=== PATIENT | female | born 1955 | race Caucasian/White ===

== ENCOUNTER 2024-01-30 11:26 | Emergency (ER) | payer OTHER, SELFPAY ==
--- NOTE | 2024-01-30 11:29 | XRR_ITS ---
PROCEDURE INFORMATION: Exam: XR Left Wrist Exam date and time: 01/30/2024 12:36 PM Age: 68 years old Clinical indication: Injury or trauma; Fall; Blunt trauma (contusions or hematomas); Wrist; Left TECHNIQUE: Imaging protocol: Radiologic exam of the left wrist. Views: 3 or more views. COMPARISON: No relevant prior studies available. FINDINGS: Bones/joints: Comminuted, impacted fracture of distal radius. Distal component is displaced proximally and volar aspect by at least 1.5 cm from distal end of radius. Small osseous density seen displaced lateral to ulnar sided processes felt to be acute fractured styloid process. Prominent arthritic changes of 1st carpometacarpal articulation noted. Bone mineralization is normal. Soft tissues: Soft tissue swelling. No soft tissue air or radiopaque foreign body. XR/XR wrist LT min 3V* [id number] IMPRESSION: Acute proximally displaced comminuted impacted fracture of distal radius. Fracture ulnar styloid process.
[2024-01-30 12:06] VITALS: BP 202/74; PULSE 66; RESP 18; TEMP 36.6; O2SAT 100; BMI 20.5
--- NOTE | 2024-01-30 12:14 | ED_ITS ---
HPI - Extremity Problem General: Chief complaint: Extremity Injury, Upper Stated complaint: Left Wrist Injury Time Seen by Provider: 01/30/24 12:09 History of Present Illness: Patient was working on her garden when she fell and tried to catch herself with her left arm. Patient felt instantaneous pain in her left distal forearm patient has obvious deformity right by her wrist. Patient states she did not have pain or deformity for the fall. Any movement makes it hurt worse. Patient did not hit her head, lose consciousness, or pass out. Review of Systems General: Reports: 10 or more systems reviewed and unremarkable except in HPI and below Physical Exam Const: COMMON NORMALS: no acute distress, average body habitus, patient oriented x3, no limitations, healthy appearing, alert and well nourished HENMT: COMMON NORMALS: normocephalic, atraumatic, hearing grossly normal bilaterally, external ears normal, EAC's normal, Normal external nose present, moist oral mucous membranes and oropharynx normal HEAD & SCALP: normocephalic and atraumatic NOSE: Normal external nose present EXTERNAL EAR: Yes external ears normal EXTERNAL AUDITORY CANAL: EAC's normal Neck/C-Spine: COMMON NORMALS: no JVD Chest: COMMONS NORMALS: normal inspection of the chest and normal palpation of entire chest wall Resp: COMMON NORMALS: normal respiratory effort, No retractions, No use of accessory muscles and clear to auscultation bilaterally AUSCULTATION: clear to auscultation bilaterally Cardio: COMMON NORMALS: no JVD, regular rate, regular rhythm, S1 normal heart sound present, S2 normal heart sound present, No gallops present (Cardio), No clicks present (Cardio), No murmurs present (Cardio) and No rub (Cardio) RATE: regular rate RHYTHM: regular rhythm HEART SOUNDS: S1 normal heart sound present and S2 normal heart sound present GI: COMMON NORMALS: Normal to inspection, nondistended, normoactive bowel sounds present, Soft to palpation, non-tender and No hepatosplenomegaly present PALPATION: Yes Soft to palpation and Yes No hepatosplenomegaly present Extremity: NARRATIVE EXTREMITY EXAM: Obvious deformity to the left wrist Neuro: COMMON NORMALS: patient oriented x3 SENSORIUM/ORIENTATION: Yes alert Procedures Orthopedic Fracture Reduction Fracture #1: Time Out Performed: Yes Side: left Fracture Reduction Location: radius Analgesia: procedural sedation and hematoma block Technique: direct manipulation Post Reduction X-rays Demonstrate: acceptable reduction Post-reduction neuro exam: intact Post-reduction vascular exam: intact Splint Applied: Yes Patient Tolerated Procedure: well and no complications Procedural Sedation Presedation Evaluation: Left distal radial fracture ASA Class: II Time of Last PO Intake: 06:00 Preparation: environmental monitoring specialist applied, pulse oximeter, supplemental O2 applied, suction/airway equipment at bedside and IV secured Ketamine dose (mg): 50 Patient Tolerated Procedure: well and no complications Complications: none Course Vital Signs: Vital signs: Vital Signs Temperature 97.9 F 01/30/24 12:06 Pulse Rate 69 01/30/24 13:08 Respiratory Rate 17 01/30/24 12:44 Blood Pressure 202/74 01/30/24 12:06 Pulse Oximetry 96 01/30/24 13:08 Oxygen Delivery Me thod Room Air 01/30/24 12:06 MDM - Extremity (Nontraumatic) Medical Decision Making X-rays obtained which showed acute proximal displaced comminuted impacted fracture of the distal radius, hematoma block was attempted with 10 cc of lidocaine directly into the fracture line itself. This provided an adequate anesthesia for reduction. Patient was then given a total of 60 mg IV ketamine and reduction was completed. Patient was placed in a splint and a sling postreduction films was obtained. Patient be given a prescription for Campbell and was referred to orthopedics through case management patient be discharged home Differential Diagnosis Unlikely herpes zoster, gout, cellulitis, superficial thrombophlebitis, deep venous thrombosis of upper extremity, lower extremity edema or deep vein thrombosis of lower extremity Medical Records I reviewed the patient's medical records. Lab Data I reviewed the patient's lab results. Radiology Impressions Forearm X-Ray 01/30/24 12:14 IMPRESSION: Acute proximally displaced comminuted fracture distal radius as seen on the wrist radiograph. Ulnar styloid process fracture. No proximal fracture identified. All radiology interpretation(s) finalized by discharge Discharge Plan Discharge Patient Disposition: Home Clinical Impression: Fracture of wrist Qualifiers: Encounter type: initial encounter Fracture type: closed Laterality: left Qualified Code(s): S62.102A - Fracture of unspecified carpal bone, left wrist, initial encounter for closed fracture Condition: Stable Prescriptions: New hydrocodone-acetaminophen 5-325 mg tablet 1 tab PO Q6H PRN (Reason: pain) Qty: 14 0RF No Action multivitamin Tablet 1 tab PO QAM Aspir-81 81 mg Tablet,Delayed Release (Dr/Ec) 81 mg PO QAM Multiminerals Tablet 1 tab PO QAM CoQ-10 100 mg Capsule 100 mg PO QAM NAC 600 mg Capsule 600 mg PO QAM Fish Oil 1,600-500-800 mg/5 mL Liquid 5 ml PO QAM magnesium oxide 400 mg magnesium Tablet 400 mg PO QAM Discharge Orders: Discharge ED (Routine); Ordered 01/30/24 Ordered By: Wes Tran Referrals: Bria Vigil FNP [Primary Care Provider] - 1 week Patient Instructions: Wrist Fracture in Adults (ED), Opioid Safety, Pain Manage ment Activity Restrictions/Additional Instructions: The x-ray showed a left wrist fracture. The fracture was displaced and this was reduced. You are placed in a splint and a sling. Please keep these on at all times until seen by orthopedics. Case management will be calling you probably on Wednesday to schedule your appointment with orthopedic surgery. A prescription of pain medicine was sent to your pharmacy. Please take all medicine as prescribed. Coding Level of Care Code ED Lead Military Analyst for Errol Santoro
--- NOTE | 2024-01-30 12:14 | XRR_ITS ---
PROCEDURE INFORMATION: Exam: XR Left Forearm Exam date and time: 01/30/2024 12:37 PM Age: 68 years old Clinical indication: Injury or trauma; Fall; Blunt trauma (contusions or hematomas); Arm, lower; Left; Additional info: Fall deformity TECHNIQUE: Imaging protocol: Radiologic exam of the left forearm. Views: 2 views. COMPARISON: CR (UP EXM, ) 01/30/2024 12:36 PM FINDINGS: Bones/joints: Acute, proximally displaced comminuted fracture of distal radius as seen on the wrist radiograph. radiograph. Fracture ulnar styloid process also suspected. No proximal fracture. Bone mineralization is normal. Soft tissues: Normal. XR/XR forearm LT 2V [id number] IMPRESSION: Acute proximally displaced comminuted fracture distal radius as seen on the wrist radiograph. Ulnar styloid process fracture. No proximal fracture identified.
[2024-01-30 12:38] VITALS: PULSE 68; O2SAT 96
[2024-01-30 12:44] VITALS: RESP 17; O2SAT 100
[2024-01-30] MEDS: fentaNYL 50 mcg/mL INJ 2mL IVP (12:44)
[2024-01-30] MEDS: sodium chloride 0.9% 1,000 ML 999 ML IV (12:44)
[2024-01-30 13:08] VITALS: PULSE 69; O2SAT 96
--- NOTE | 2024-01-30 14:10 | XRR_ITS ---
PROCEDURE INFORMATION: Exam: XR Left Wrist Exam date and time: 01/30/2024 2:16 PM Age: 68 years old Clinical indication: Injury or trauma; Fall; Other: Post reduction TECHNIQUE: Imaging protocol: Radiologic exam of the left wrist. Views: 3 or more views. COMPARISON: CR (UP EXM, ) 01/30/2024 12:36 PM FINDINGS: Bones/joints: Comminuted fracture of distal radius with displaced distal component proximally in volar aspect is not significantly changed. Ulnar styloid process fracture again noted. Soft tissues: Interval placement of overlying cast. XR/XR wrist LT min 3V* [id number] IMPRESSION: Comminuted displaced and impacted fracture of distal radius, no significant change. Ulnar styloid process fracture suspected.
[2024-01-30] MEDS: lidocaine 1% INJ 10 mL (per mL) INJECTION (14:26)
[2024-01-30] MEDS: ketamine 100 mg/mL Inj 5 mL 30 MG IVP ×2 (14:26)
[2024-01-30] MEDS: ondansetron 2 mg/ML SDV 2 mL 4 MG IVP (14:34)
--- NOTE | 2024-01-31 10:54 | DCPLANNER ---
A message was sent to ortho on 01/30 at [id number]. [facility] to contact patient
== END 2024-01-30 15:13 | disposition home or self-care (01) ==
PROVIDERS: Emergency Provider Emergency Medicine; PCP Nurse Practitioner
DX: S52.592A Other fractures of lower end of left radius, initial encounter for closed fracture (principal); S52.612A Displaced fracture of left ulna styloid process, initial encounter for closed fracture; Z79.82 Long term (current) use of aspirin; W19.XXXA Unspecified fall, initial encounter; Y93.H2 Activity, gardening and landscaping
CPT/HCPCS: 25605; 73090; 73110; 94799; 96361; 96374; 96375; 99285; J2405; J3010; J3490; J7030

== ENCOUNTER → 2024-02-01 07:53 | Outpatient (BNVA) | payer OTHER, SELFPAY | PROVIDERS: PCP Nurse Practitioner; Referring Provider Emergency Medicine; Visit Provider Physician Assistant | DX: S62.102A Fracture of unspecified carpal bone, left wrist, initial encounter for closed fracture (principal); W19.XXXA Unspecified fall, initial encounter | CPT/HCPCS: 73110 ==

== ENCOUNTER 2024-02-01 10:18 | Outpatient (CLI) | payer OTHER, SELFPAY | END 2024-02-01 10:19 | disposition home or self-care (01) | LOC: SPT 10:18 | PROVIDERS: PCP Nurse Practitioner; Visit Provider Student in an Organized Health Care Education/Training Program | DX: Z46.89 Encounter for fitting and adjustment of other specified devices (principal); S52.592D Other fractures of lower end of left radius, subsequent encounter for closed fracture with routine healing; X58.XXXD Exposure to other specified factors, subsequent encounter | CPT/HCPCS: 97760; 99204; L3908 ==

== ENCOUNTER 2024-02-03 07:21 | Day surgery (SDC) | payer OTHER, SELFPAY ==
[2024-02-03] VITALS (11 sets, daily range): BP systolic 150–182; BP diastolic 67–101; PULSE 71–85; RESP 14–22; TEMP 36.2–36.4; O2SAT 93–97; BMI 22.1
--- NOTE | 2024-02-03 07:10 | ECG_ITS ---
[facility] Test Date: 2024-02-03 Pat Name: Reyna White Department: Room: Gender: Female Field Secretary: : 1955 Requested By: Bassem Payne Order Number: [id number] Jl MD: Popeye Rossi M.D. Measurements Intervals [place] Rate: 73 P: 73 NH: 116 QRS: 42 QRSD: 101 T: 44 QT: 397 QTc: 440 Interpretive Statements SINUS RHYTHM WITH SHORT NH INTERVAL POSSIBLE LEFT ATRIAL ENLARGEMENT [-0.1mV P-WAVE IN V1/V2] INCOMPLETE RIGHT BUNDLE BRANCH BLOCK [90+ ms QRS DURATION, TERMINAL R IN V1/V2, 40+ ms S IN I/aVL/V4/V5/V6] MINIMAL ST DEPRESSION [0.025+ mV ST DEPRESSION] No previous ECG available for comparison Electronically Signed On 02-03-2024 14:50:58 SCANNING SUPERVISOR by Popeye Rossi M.D. [id number]
--- NOTE | 2024-02-03 08:02 | ANES.PREANE2 ---
Pre-Anesthetic Assessment Height/Weight: Height 1.63 m Weight 58.513 kg Temp Pulse Resp BP Pulse Ox O2 Del Method 97.5 F L 71 16 174/87 96 Room Air 02/03/24 07:39 02/03/24 07:39 02/03/24 07:39 02/03/24 07:39 02/03/24 07:39 02/03/24 07:41 Operation Date: 02/03/24 08:30 Proposed Procedures p ORIF Wrist ORIF Distal Radius(Left) - Berlin Rhonda, DO Was Beta Geovanny taken within 24 hours: N/A Was Clonidine taken within 24 hours: N/A Last intake: Intake Last Liquid Date 02/02/24 Last Liquid Time 20:00 Last Solid Date 02/02/24 Last Solid Time 16:00 Social No alcohol and No tobacco Exam alert, oriented x 3, clear to auscultation bilaterally and regular rate & rhythm Airway Submandibular: within normal limits Cervical ROM: within normal limits Mallampati: Class II Dentition: false Comments: Comments: Upper denture - at home History/ROS No significant history except as noted and No significant complaints Anesthetic Plan ASA status: 2 Anesthesia: General and Regional (specify below) Other: Supraclavicular block for post-op pain requested by surgeon Risk of > 500 ml blood loss (7ml/kg in children): No Medications/Allergies Home Medications Medication Instructions Recorded Confirmed Last Taken Type acetylcysteine 600 mg capsule (NAC) 600 mg PO QAM 01/30/24 02/02/24 02/02/24 History aspirin 81 mg tablet,delayed 81 mg PO QAM 01/30/24 02/02/24 02/02/24 History release coenzyme Q10 100 mg capsule 100 mg PO QAM 01/30/24 02/02/24 02/02/24 History (CoQ-10) hydrocodone 5 mg-acetaminophen 325 1 tab PO Q6H PRN pain #14 tabs 01/30/24 02/02/24 02/02/24 Rx mg tablet magnesium oxide 400 mg PO QAM 01/30/24 02/02/24 02/02/24 History minerals 1 tab PO QAM 01/30/24 02/02/24 02/02/24 History multivitamin 1 tab PO QAM 01/30/24 02/02/24 02/02/24 History omega 2-rce-shj-fish oil 1,600 5 ml PO QAM 01/30/24 02/02/24 02/02/24 History mg-500 mg-800 mg/5 mL oral liquid (Fish Oil) left wrist brace #1 ea 02/01/24 02/01/24 Unknown Rx ondansetron HCl 4 mg tablet 4 mg PO Q8H PRN nausea and 02/01/24 02/02/24 02/02/24 Rx vomiting #30 tabs Allergies Allergy/AdvReac Type Severity Reaction Status Date / Time erythromycin base Allergy ALGY-Hives Verified 02/01/24 08:11 PFS Anesthesia Social History (Updated 02/01/24 @ 08:13 by Carmen Chaudhari LPN) Smoking and tobacco/nicotine status: never used tobacco/nicotine Alcohol intake: current Alcohol intake frequency: few times a month Data Anesthesia Cardiac Studies: No Data to Display
[2024-02-03] MEDS: sodium chloride 0.9% 1,000 ML 30 ML IV (08:04)
[2024-02-03] MEDS: ondansetron 2 mg/ML SDV 2 mL 4 MG IVP (08:05)
[2024-02-03] MEDS: acetaminophen 1,000 MG/100 ML PIGGYBACK 400 MG IV (08:05)
[2024-02-03] MEDS: ketorolac 30 mg/mL INJ IVP (08:06)
[2024-02-03] MEDS: scopolamine 1.5 Patch 1 PATCH TRANSDERMA (08:06)
[2024-02-03] MEDS: midazolam 1 mg/mL INJ 5 ML 5 MG IVP (08:36)
--- NOTE | 2024-02-03 08:49 | W.PM.OPSUD ---
Surgery/Procedure H&P Update DATE OF PROCEDURE: February 03, 2024 DATE H&P PERFORMED: 02/01/24 H&P UPDATE INFORMATION: I have reviewed H&P completed within last 30 days, I have examined patient prior to procedure and No changes to prior documentation PREOP DIAGNOSIS: Left distal radius fracture PRIMARY INDICATION FOR PROCEDURE: Left distal radius fracture PLANNED PROCEDURE: Operation Date: 02/03/24 08:30 Proposed Procedures p ORIF Wrist ORIF Distal Radius(Left) - Berlin Ellis DO
--- NOTE | 2024-02-03 08:56 | XR_ITS ---
WS: [id number] Left wrist, C-arm fluoroscopy views, 02/03/2024 Clinical Data: ERIC PICS Comparison: Left wrist, 02/01/2024 Findings: Dr. Ellis placed an orthopedic plate with screws to reduce a fracture of the distal left radius. Impression: Internal fixation of distal left radial fracture.
[2024-02-03] MEDS: ceFAZolin 2,000 MG in sodium chloride 0.9% (plus) 50 ML 100 MG IV (09:01)
--- NOTE | 2024-02-03 09:55 | P.BOP_ITS ---
Date of Procedure: 02/03/2024 Surgeon: Berlin Ellis DO [employer] School Combination Teacher(s): None Procedure(s) performed: Left distal radius open reduction internal fixation 4 part intra-articular Findings of the procedure(s): Patient found to have a 4 part intra-articular volar shear fracture. Patient underwent ORIF without any complications or issues Estimated blood loss: 5 mL Specimen(s) removed: None Post-operative diagnosis: Left distal radius 4 part intra-articular
--- NOTE | 2024-02-03 09:59 | P.OP_ITS ---
Operative Report Date of procedure: February 03, 2024 Surgeon: Berlin Ellis DO Procedure: Preop Diagnosis ?Left?distal?radius fracture ? Procedure: Post-op diagnosis: Same, 4 part intra-articular Procedure done: Left?distal?radius open reduction internal fixation, 4-part intra-articular Implants: ?Arthrex left 3-hole standard volar locking plate Combination of locking and nonlocking screws 2.7 mm?distal Combination of locking and nonlocking screws 3.5 mm proximal Surgeon: Berlin Ellis DO Anesthesia: General and nerve Block (Regional) Estimated blood loss: 5 mL Tourniquet time: 23 minutes IV fluids: See anesthesia record Complications: None Findings: See operative report narrative Condition: stable Disposition: same day Brief History: Patient is a 68-year-old female who presented to my office for a xyxdh-yvqzlxorx-lodxtgggd left?distal?radius fracture.? Patient has significant comminution and shortening as well as volar angulation/shear patient active and at this point time through shared decision making patient like to proceed with a left?distal?radius ORIF.? We had a detailed discussion in the office about nonoperative and operative intervention.? At this point time I feel through shared decision? best option would be open reduction internal fixation she is active and already has a considerable deformity?? as result through shared decision making patient would like to proceed with ORIF left?distal?radius fracture.? Detail the risk benefits complication alternatives to treatment option.? Understanding risk for surgery patient elects to proceed with surgical intervention.? All questions been answered at this time. Procedure: Patient seen and evaluated in the preoperative holding area.? Consent reviewed and signed with patient.? Correct extremities were marked and consent was reviewed and signed.? Patient was seen and evaluated by anesthesia department.? Underwent regional anesthesia. Once cleared for surgery pt was taken back to the operative suite.? Patient was then transported into the operative suite and kept on the OR gurney, all bony prominences well-padded patient was appropriate secured to bed in supine position.? An armboard was applied to the left upper extremity.? The left upper extremity had a nonsterile tourniquet applied.? Patient subsequently was then prepped and draped in standard orthopedic fashion she underwent anesthesia per the anesthesia department.? A final timeout was performed.? Patient received appropriate preoperative antibiotics. Esmarch was used exsanguinate the left upper extremity and tourniquet was insufflated to 250 mmHg. A standard modified FCR volar approach was performed to the left?distal?radius.? Sharp scalpel incision through skin and subcutaneous tissue.? I then switched to Littler dissection scissors identify the FCR tendon releases out of the sheath both proximally and?distally mobilized the tendon ulnarly and then subsequently incised the floor of the FCR tendon sheath with care to just incise the floor.? I then bluntly sweep the FPL tendon muscle belly ulnarly and placed blunt self- retaining retractor.? At this point time I direct visualization of the pronator quadratus which was incised in standard L fashion off the?radial and?distal?border in the?distal?radius and fracture site was scraped clean of interposed muscle belly.? I then identified the 4 part intra- articular?distal?radius fracture.? This was subsequently opened above and freed of interposing muscle belly as well as periosteum and fracture hematoma.? I did have to utilize my [place] which was placed through the fracture pattern and disengage the fracture and performed manual manipulation and anatomic reduction of the?distal?radius fracture.? ?Once satisfied with reduction and had appropriate anatomic reduction of the volar cortex.? This was confirmed with mini C arm in multiple orthogonal imaging.? At this point time? I selected a Arthrex anatomic?distal?radius plate utilizing a standard 3-hole plate which would have appropriate spread?distally.? This was then placed up to the?distal?radius while maintaining my reduction, pins were placed?distally and proximally to confirm appropriate placement of the plate along the?distal?radius.? Minor adjustments were made and once I was s atisfied I then subsequently drilled a bicortical 3.5 screw proximally in the oblong hole to allow for appropriate sliding of the?distal?radius plate appropriately to perfect position on the?distal?radius.? This had excellent fixation and purchase and brought the plate to bone.? While maintaining my reduction I then confirmed in multiple orthogonal imaging that my plate was in appropriate position.? Once satisfied with my position I then subsequently placed the peek targeting guide on the?distal?locking screws with Arthrex.? The locking guide was then subsequently loaded and I subsequently drilled and placed a fully threaded cortical screw to compress the plate to bone for the?distal?fracture fragment.? This was performed with plan to then remove this and placed a shorter locking screw had bicortical fixation with excellent purchase and appropriate episcopal of my volar tilt and bringing plate to bone of the?distal?fragment and plate.? Once I was satisfied with my plate position as well as reduction of the?distal?radius which was confirmed on AP oblique and lateral imaging I then subsequently drilled measured and placed additional locking screws around this cortical screw.? Then I subsequently removed the cortical screw and placed a shorter locking screw that did not penetrate the dorsal cortex.?? This completed my?distal?fixation.? I did utilize mini C arm to confirm appropriate placement of the screws these were all within the?distal?radius and no joint involvement within the?radiocarpal joint or the DRUJ.? These had appropriate subchondral support and maintenance of reduction and fixation of the?distal?radius fracture.? ?I then turned my attention proximally and then I screwed in the locking guides for my final to screws proximally these were then subsequently drilled measured and appropriate length locking screws were then placed proximally with excellent fixation and locking technology into the plate.? This completed my construct.? The peek guide was subsequently removed and final imaging of the left?distal?radius open reduction internal fixation was taken of AP lateral as well and is orthogonal imaging.? I then took a inclination view which showed my?radial styloid screw was out of the penetration of the joint.? All my?distal?screws were appropriate length did not penetrate dorsal cortex and did not penetrate the joint.? This completed my fixation.? Smooth wrist range of motion was then noted with no evidence of clicking. Wrist was then taken through pronation supination and stressed the DRUJ which was found to be stable.? The wound was then thoroughly irrigated.? Tourniquet was then subsequently deflated.? Hemostasis satisfactory with bipolar electrocautery.? I then subsequently placed interrupted 3-0 Vicryl sutures for subcutaneous tissue and then subsequently placed a nylon the skin for closure.? Incision was then dressed with Xeroform 4 x 4's Kerlix cast padding and a volar Ortho-Glass splint was then applied with Johan wrap and placed in a sling.? Disposition: Patient taken to PACU in stable condition recovering well receive appropriate discharge instructions as well as pain medication postoperatively.? Maintain splint until follow-up.? Nonweightbearing to operative upper extremity We will follow-up with Dr. Ellis in the office in 2 weeks.? If any questions or concerns feel free to contact the office.
--- NOTE | 2024-02-03 20:17 | ANE.PACU2 ---
Inpatient post-anesthesia follow up: Airway intact: Yes Vital signs: Temperature 97.4 F Pulse Rate 83 Respiratory Rate 20 Blood Pressure 182/99 Pulse Oximetry 93 Oxygen Delivery Me thod Room Air Oxygen Flow Rate Fraction of Inspir ed Oxygen Hydration adequate: Yes Nausea and vomiting: No Pain level: Other Pain level: No pain Mental status: Baseline
== END 2024-02-03 11:31 | disposition home or self-care (01) ==
PROVIDERS: PCP Obstetrics & Gynecology; Visit Provider Student in an Organized Health Care Education/Training Program
PROC: (CPT 25609; principal; 2024-02-03 08:30)
DX: S52.572A Other intraarticular fracture of lower end of left radius, initial encounter for closed fracture (principal); W01.0XXA Fall on same level from slipping, tripping and stumbling without subsequent striking against object, initial encounter; Z79.82 Long term (current) use of aspirin
CPT/HCPCS: 25609; 73100; 76000; 93005; C1713 ×2; J0131; J0690; J1100; J1885; J2250; J2371; J2405; J2704; J2795; J3010; J7030

== ENCOUNTER 2024-02-17 06:00 | Outpatient (CLI) | payer OTHER, SELFPAY | END 2024-02-17 23:59 | disposition home or self-care (01) | LOC: SOT 02-18 07:40 | PROVIDERS: Visit Provider Student in an Organized Health Care Education/Training Program | DX: Z46.89 Encounter for fitting and adjustment of other specified devices (principal); S62.102D Fracture of unspecified carpal bone, left wrist, subsequent encounter for fracture with routine healing; X58.XXXD Exposure to other specified factors, subsequent encounter | CPT/HCPCS: 97760; 99024; L3906 ==

== ENCOUNTER → 2024-02-17 10:09 | Outpatient (BNVA) | payer OTHER, SELFPAY | PROVIDERS: PCP Obstetrics & Gynecology; Visit Provider Student in an Organized Health Care Education/Training Program | DX: S62.102D Fracture of unspecified carpal bone, left wrist, subsequent encounter for fracture with routine healing; X58.XXXD Exposure to other specified factors, subsequent encounter | CPT/HCPCS: 73110 ==

== ENCOUNTER 2024-02-29 06:00 | Outpatient (RCR) | payer OTHER, SELFPAY | END 2024-03-28 23:59 | disposition home or self-care (01) | LOC: SOT 06:00 | PROVIDERS: Visit Provider Student in an Organized Health Care Education/Training Program | DX: S52.502D Unspecified fracture of the lower end of left radius, subsequent encounter for closed fracture with routine healing (principal); X58.XXXD Exposure to other specified factors, subsequent encounter | CPT/HCPCS: 97022; 97110; 97140; 97166 ==

== ENCOUNTER → 2024-03-14 11:36 | Outpatient (BNVA) | payer OTHER, SELFPAY | PROVIDERS: Visit Provider Student in an Organized Health Care Education/Training Program | DX: S62.102A Fracture of unspecified carpal bone, left wrist, initial encounter for closed fracture (principal); X58.XXXA Exposure to other specified factors, initial encounter | CPT/HCPCS: 73110; 99213 ==

== ENCOUNTER 2024-03-29 06:00 | Outpatient (RCR) | payer OTHER, SELFPAY | END 2024-04-28 23:59 | disposition home or self-care (01) | LOC: SOT 06:00 | PROVIDERS: Visit Provider Student in an Organized Health Care Education/Training Program | DX: S52.502D Unspecified fracture of the lower end of left radius, subsequent encounter for closed fracture with routine healing (principal); X58.XXXD Exposure to other specified factors, subsequent encounter | CPT/HCPCS: 97022; 97110; 97140 ==

== ENCOUNTER 2024-04-29 06:00 | Outpatient (RCR) | payer OTHER, SELFPAY | END 2024-05-28 23:59 | disposition home or self-care (01) | LOC: SOT 06:00 | PROVIDERS: Visit Provider Student in an Organized Health Care Education/Training Program | DX: S52.502D Unspecified fracture of the lower end of left radius, subsequent encounter for closed fracture with routine healing (principal); X58.XXXD Exposure to other specified factors, subsequent encounter | CPT/HCPCS: 97022; 97110 ==

== ENCOUNTER → 2024-06-20 08:46 | Outpatient (BNVA) | payer OTHER, SELFPAY | PROVIDERS: Visit Provider Student in an Organized Health Care Education/Training Program | DX: S62.102A Fracture of unspecified carpal bone, left wrist, initial encounter for closed fracture (principal); X58.XXXA Exposure to other specified factors, initial encounter | CPT/HCPCS: 73110 ==